=== PATIENT | female | born 1990 | race Two or more races ===

== ENCOUNTER 2016-11-14 06:37 | Day surgery (SDC) | payer BC ==
[2016-11-14] MEDS ORDERED: IV SET PRIMARY 1 EA INFUS.SET MC ONE (07:20)
[2016-11-14] MEDS ORDERED: IV LR 1000 ML 1,000 ML ONE (07:20)
[2016-11-14 07:26] LABS: BASOPHILS % (AUTO) 0.4 % (0.0-2.0); EOSINOPHILS # (AUTO) 0.2 /CMM (0.0-0.7); EOSINOPHILS % (AUTO) 2.8 % (0.0-6.0); HEMATOCRIT 38 % (33-45); LYMPHOCYTES # (AUTO) 2.5 /CMM (0.8-4.8); LYMPHOCYTES % (AUTO) 32.1 % (20.0-44.0); MEAN CORPUSCULAR HEMOGLOBIN 31 PG (26.0-33.0); MEAN CORPUSCULAR HGB CONC 34 g/dl (31.0-36.0); MEAN CORPUSCULAR VOLUME 92 fL (82-100); MONOCYTES # (AUTO) 0.6 /CMM (0.1-1.30); MONOCYTES % (AUTO) 7.6 % (2.0-12.0); NEUTROPHILS # (AUTO) 4.4 /CMM (1.8-8.9); NEUTROPHILS % (AUTO) 57.1 % (43.0-81.0); PLATELET COUNT (AUTO) 246 /CMM (150-450); RDW COEFFICIENT OF VARIATION 12.1 (11.5-15.0); RED BLOOD CELL COUNT(AUTO) 4.15 MIL/uL (4.0-5.2); WHITE BLOOD COUNT (AUTO) 7.7 K/uL (4.3-11.0)
[2016-11-14 07:36] LABS: CALCIUM, SERUM 8.8 mg/dL (8.5-10.1); CREATININE 0.7 mg/dL (0.6-1.3)
[2016-11-14 07:41] LABS: INR 0.96 (0.87-1.13); PROTHROMBIN TIME 10.3 SECS (9.5-12.7)
[2016-11-14] MEDS ORDERED: CEFAZOLIN SODIUM/DEXTROSE,ISO 50 ML IV ONE (07:52)
[2016-11-14] MEDS ORDERED: SUCCINYLCHOLINE CHLORIDE 20 MG/ML VIAL ONE (08:22)
[2016-11-14] MEDS ORDERED: FENTANYL PF 100MCG/2ML AMPUL ONE (08:22)
[2016-11-14] MEDS ORDERED: KETOROLAC TROMETHAMINE INJ 30 MG/ML VIAL ONE (09:54)
[2016-11-14] MEDS ORDERED: ONDANSETRON HCL/PF 4 MG/2 ML VIAL IV PRN (10:30)
[2016-11-14] MEDS ORDERED: IBUPROFEN 200 MG TABLET PO ONE (11:00)
== END 2016-11-14 11:01 | disposition home or self-care (01) ==
LOC: DS 06:37 → EDSTATUS 13:38
PROVIDERS: ATTEND Obstetrics & Gynecology
DX: N85.8 Other specified noninflammatory disorders of uterus (principal)
CPT/HCPCS: 36415; 80048-TC; 84703-TC; 85025-TC; 85610-TC; 86850-TC; 88305-TC; A4217; J0330; J0690; J1100; J1885; J2704; J3010; J3490; J7120; Z7610

== ENCOUNTER 2016-11-22 08:37 | Day surgery (SDC) | payer BC ==
[2016-11-22] MEDS ORDERED: IV LR 1000 ML 1,000 ML ONE (09:01)
[2016-11-22] MEDS ORDERED: CEFAZOLIN SODIUM/DEXTROSE,ISO 50 ML IV ONE (09:01)
[2016-11-22] MEDS ORDERED: SECONDARY IV SET 1 EA INFUS.SET MC ONE (09:01)
[2016-11-22] MEDS ORDERED: NEEDLELESS EST SET LARGE BORE 1 EA INFUS.SET MC ONE (09:01)
[2016-11-22] MEDS ORDERED: IV SET PRIMARY 1 EA INFUS.SET MC ONE (09:01)
[2016-11-22] MEDS ORDERED: MIDAZOLAM HCL 2 MG/2ML VIAL ONE (09:46)
[2016-11-22] MEDS ORDERED: KETOROLAC TROMETHAMINE INJ 30 MG/ML VIAL ONE (11:18)
== END 2016-11-22 12:10 ==
LOC: DS 08:37
PROVIDERS: ATTEND Obstetrics & Gynecology
DX: L72.8 Other follicular cysts of the skin and subcutaneous tissue (principal); N92.1 Excessive and frequent menstruation with irregular cycle
CPT/HCPCS: 84703-TC; 88305-TC; J0690; J1100; J1885; J2250; J2405; J2704; J3490; J7120